=== PATIENT | male | born 1945 | race Caucasian/White ===

== ENCOUNTER 2025-07-04 08:26 | Day surgery (SDC) | payer BC, MEDICARE ==
[~2025-07-04] VITALS: Ht 160 cm; Wt 68.1 kg
[~2025-07-04 08:26] MED LIST: ATOR80TA59 PO; BUDE10.32 INH; DESL1TAB3 PO; ELIQ5TAB PO; FLUO-290 PO; FURO20TA2 PO; METO50TA7 PO; OMEP40CA5 PO; SYNT100T PO
[2025-07-04] MEDS ORDERED: VITA250T27 PO (10:05)
[2025-07-04] MEDS ORDERED: IRON65TA2 PO (10:05)
[2025-07-04] MEDS ORDERED: LIDOCAINE 2% 100 MG/5 ML SDV (FOR ANES.) As Ordered ONE (11:00)
[2025-07-04] MEDS ORDERED: PHENYLephrine 500MCG 5ML (100MCG/ML) SYRINGE As Ordered ONE (11:08)
[2025-07-04 11:28] VITALS: TEMP 97.1
[2025-07-04 11:48] VITALS: BP 122/58; O2SAT 99
== END 2025-07-04 12:01 | disposition home or self-care (01) ==
LOC: M OPP 08:26
PROVIDERS: ATTEND Internal Medicine Gastroenterology
DX: D12.6 Benign neoplasm of colon, unspecified (principal); K57.30 Diverticulosis of large intestine without perforation or abscess without bleeding; K64.0 First degree hemorrhoids; D50.9 Iron deficiency anemia, unspecified; K22.89 Other specified disease of esophagus; K44.9 Diaphragmatic hernia without obstruction or gangrene; K22.70 Barrett's esophagus without dysplasia; K31.89 Other diseases of stomach and duodenum; G47.30 Sleep apnea, unspecified; I48.91 Unspecified atrial fibrillation; Z88.1 Allergy status to other antibiotic agents; Z79.51 Long term (current) use of inhaled steroids; Z79.01 Long term (current) use of anticoagulants; Z79.899 Other long term (current) drug therapy; J44.9 Chronic obstructive pulmonary disease, unspecified
CPT/HCPCS: 43239; 45385; 88305; J2371; J3010